=== PATIENT | male | born 1960 | race Caucasian/White ===

== ENCOUNTER 2019-10-17 10:37 | Emergency (ER) | payer OTHER, MEDICAID ==
[~2019-10-17] VITALS: Ht 177.8 cm; Wt 67.1 kg
[2019-10-17 11:07] VITALS: BP_SYST 153
--- NOTE | 2019-10-17 14:15 | NUR ---
Dr Isbell examining patient in the triage room
--- NOTE | 2019-10-17 14:20 | NUR ---
Pt brought by self, A&Ox4, pt presents to ER with R lower back pain radiating to R leg, skin pink and warm, cap refill <3, VSS, respirations even and unlabored, will cont to monitor.
[2019-10-17] MEDS ORDERED: GABAPENTIN 100 MG CAPSULE PO ONE (14:30)
[2019-10-17] MEDS ORDERED: IBUPROFEN 600 MG TABLET PO ONE (14:30)
[2019-10-17] MEDS ORDERED: CYCLOBENZAPRINE HCL 10 MG TABLET (FLEXERIL) PO ONE (14:30)
[2019-10-17] MEDS ORDERED: HYDROcodone/ACETAMIN 5-325 MG TAB (NORCO/ VICODIN) PO ONE (14:30)
[2019-10-17 15:26] VITALS: BP_SYST 146
--- NOTE | 2019-10-17 15:27 | NUR ---
Patient given written and verbal discharge instructions and verbalizes understanding. ER MD discussed with patient the results and treatment provided. Patient in stable condition. ID arm band removed. Rx of Ibuprofen, Gabapentin, Tylenol and cyclobenzaprine given. Patient educated on pain management and to follow up with PMD. Pain Scale 3/10. Opportunity for questions provided and answered. Medication side effect fact sheet provided.
== END 2019-10-17 15:27 | disposition home or self-care (01) ==
LOC: SED 10:37
DX: M54.5 Low back pain (principal)
CPT/HCPCS: 99284